=== PATIENT | male | born 1995 | race Hispanic/Latino ===

== ENCOUNTER 2022-02-19 02:23 | Emergency (ER) | payer OTHER ==
[~2022-02-19] VITALS: Ht 170.2 cm; Wt 93.0 kg
[2022-02-19 02:38] VITALS: BP 138/72
[2022-02-19] MEDS ORDERED: LIDOCAINE HCL 1% 20 ML VIAL INJ SCH (03:00)
[2022-02-19] MEDS ORDERED: OCTYL 2-CYANOACRYLATE 1 EACH TP ONE (03:06)
[2022-02-19] MEDS ORDERED: OCTYL 2-CYANOACRYLATE 1 EACH TP SCH (03:30)
== END 2022-02-19 04:23 | disposition left against medical advice (07) ==
LOC: EDH 02:23
DX: S01.81XA Laceration without foreign body of other part of head, initial encounter (principal); Z53.21 Procedure and treatment not carried out due to patient leaving prior to being seen by health care provider; X58.XXXA Exposure to other specified factors, initial encounter; Y93.89 Activity, other specified; Y92.89 Other specified places as the place of occurrence of the external cause; Y99.8 Other external cause status
CPT/HCPCS: 70450; 70486